=== PATIENT | female | born 1935 | race Caucasian/White ===

== ENCOUNTER 2017-11-07 08:13 | Day surgery (SDC) | payer OTHER ==
[~2017-11-07] VITALS: Ht 160 cm; Wt 63.0 kg
[~2017-11-07 08:13] MED LIST: BUDE10.2 INH; CALC600T23 PO; CEFD300C37 PO; CHOL100012 PO; CITA20TA9 PO; CYAN100028 PO; DOXY100T PO; L.AC1CAP6 PO; LEVO88TA4 PO; LISI40TA PO; OMEP20TA62 PO; TIOT18CA INH
[2017-11-07] MEDS ORDERED: LACTATED RINGERS 1,000 ML IV SCH (08:35)
[2017-11-07 08:36] VITALS: BP 121/67
[2017-11-07] MEDS ORDERED: PARO20TA4 PO (08:56)
[2017-11-07] MEDS ORDERED: FLUT1DIS5 IH (08:57)
[2017-11-07] MEDS ORDERED: PLEASE ENTER HEIGHT AND WEIGHT MC SCH (09:00)
[2017-11-07] MEDS ORDERED: FENTANYL PF 100 MCG/2ML ONE (10:50)
[2017-11-07] MEDS ORDERED: MIDAZOLAM 1 MG/ML, 2ML ONE (10:50)
[2017-11-07] MEDS ORDERED: PROPOFOL 10 MG/ML, 20ML ONE (10:58)
[2017-11-07] MEDS ORDERED: ONDANSETRON ODT 8 MG PO PRN (12:00)
[2017-11-07] MEDS ORDERED: OXYcodone 5 MG/5 ML ORAL.SOL UDC PO PRN (12:00)
[2017-11-07] MEDS ORDERED: FENTANYL PF 100 MCG/2ML IV PRN (12:00)
[2017-11-07] MEDS ORDERED: ACETAMINOPHEN 325 MG TABLET PO PRN (12:00)
[2017-11-07] MEDS ORDERED: MEPERIDINE/PF 25MG/0.5ML IVPush PRN (12:00)
== END 2017-11-07 12:30 ==
LOC: OUT 08:13
PROVIDERS: ATTEND Internal Medicine Gastroenterology
DX: K63.5 Polyp of colon (principal); K57.30 Diverticulosis of large intestine without perforation or abscess without bleeding; K31.89 Other diseases of stomach and duodenum; F41.9 Anxiety disorder, unspecified; D50.9 Iron deficiency anemia, unspecified; J44.9 Chronic obstructive pulmonary disease, unspecified; F32.9 Major depressive disorder, single episode, unspecified; I10 Essential (primary) hypertension; Z86.010 Personal history of colon polyps; Z98.890 Other specified postprocedural states
CPT/HCPCS: 43239; 45385; 88305; 93005; J2704; J7120

== ENCOUNTER → 2017-12-29 | Outpatient (CLI) | payer OTHER ==
[~2017-12-29] MED LIST changes: +FLUT1DIS5 IH; +PARO20TA4 PO
== END | disposition home or self-care (01) ==
LOC: CFH 09:28
PROVIDERS: ATTEND Internal Medicine Critical Care Medicine
DX: J44.9 Chronic obstructive pulmonary disease, unspecified (principal); I70.0 Atherosclerosis of aorta; J98.11 Atelectasis; K80.20 Calculus of gallbladder without cholecystitis without obstruction
CPT/HCPCS: 71250